=== PATIENT | male | born 1990 | race Caucasian/White ===

== ENCOUNTER 2017-11-12 12:37 | Emergency (ER) | payer OTHER ==
[~2017-11-12] VITALS: Ht 190.5 cm; Wt 87.5 kg
[2017-11-12] MEDS ORDERED: Norco 5mg/325mg tab ORAL ONE (13:00)
--- NOTE | 2017-11-12 14:10 | Diagnostic Imaging Report ---
Indication: Pain Technique: Multiplanar grayscale and color Doppler imaging of the testicles Comparison: None Findings: The right testicle measures 4.1 x 2.7 x 3.2 cm. Echogenicity is homogeneous. No focal mass lesion is appreciated. Vascular flow to the right testicle is documented. There is a trace right hydrocele. Right epididymis is unremarkable in appearance. No hyperemia is noted upon interrogation with color Doppler. Multiple subcentimeter well-circumscribed anechoic structures are noted in the epididymis compatible with epididymal cysts. No definite varicocele noted in the right. The left testicle measures 4.2 x 2.3 x 2.5 cm. It is homogeneous in echogenicity. No focal mass lesion is appreciated. A moderate-sized hydrocele is noted on the left. Vascular flow to the left testicle is documented. Small epididymal cysts are also noted in the left epididymis, which is otherwise unremarkable in appearance. No hyperemia is noted upon interrogation with color Doppler. There is dilatation of venous structures in the pampiniform plexus with Valsalva on the left greater than 3 mm compatible with a varicocele. IMPRESSION: No evidence to suggest testicular torsion at this time. Trace right hydrocele. Mild to moderate left hydrocele. Left-sided varicocele.
[2017-11-12] MEDS ORDERED: ACETAMINOPHEN-1 EAC1 ORAL (14:25)
[2017-11-12 15:05] VITALS: BP 127/79
--- NOTE | 2017-11-13 14:02 | Emergency Room Report ---
History of Present Illness General Chief Complaint: Pain Source: Patient Present Illness HPI 27-year-old male presents to ED for evaluation. Patient presents with left testicular pain which started around 11 AM today. Sudden onset. Pain is throbbing, 8/10, nonradiating. patient feels nauseous. Patient documents history of varicocele but states this feels different. Denies dysuria or hematuria. Denies discharge. Denies trauma. No other aggravating relieving factors. Denies any other associated symptoms Allergies: Coded Allergies: No Known Allergies (Unverified , 11/12/17) Patient History Past Medical History: none Past Surgical History: none Pertinent Family History: none Social History: Denies: smoking, alcohol use, drug use Immunizations: UTD Reviewed Nursing Documentation: PMH: Agreed, PSxH: Agreed Nursing Documentation-PMH Past Medical History: No Stated History Review of Systems All Other Systems: negative except mentioned in HPI Physical Exam Vital Signs Date Time Temp Pulse Resp B/P (MAP) Pulse Ox O2 Delivery O2 Flow Rate FiO2 11/12/17 12:40 97.9 62 18 134/88 100 Room Air Sp02 EP Interpretation: reviewed, normal General Appearance: no apparent distress, alert, GCS 15, non-toxic Head: normocephalic Eyes: bilateral eye normal inspection, bilateral eye PERRL ENT: normal ENT inspection Neck: normal inspection Respiratory: normal inspection Cardiovascular #1: normal inspection Gastrointestinal: normal inspection Rectal: deferred Genitourinary: no CVA tenderness, other - L testicular pain Musculoskeletal: normal inspection Neurologic: alert, oriented x3, responsive, motor strength/tone normal, sensory intact, speech normal Psychiatric: judgement/insight normal, memory normal, mood/affect normal, no suicidal/homicidal ideation Skin: normal inspection Lymphatic: normal inspection Medical Decision Making Diagnostic Impression: Primary Impression: Varicocele ER Course 27-year-old male presents to ED complaining of scrotal pain Differential-torsion, hydrocele, varicocele patient placed on stretcher. After initial history and physical I ordered pain meds, Zofran, scrotal ultrasound Ultrasound shows no evidence of torsion, good Doppler flow to both testicles. There is evidence of hydrocele and varicocele Discussed findings with patient. On reassessment pain is improved. Patient can be safely discharged home I will provide referral to urology Diagnosis-varicocele Stable and discharged to home prescription for Tylenol #3. Followup with PMD/ urology. Return to ED if symptoms recur or worsen CT/MRI/US Diagnostic Results CT/MRI/US Diagnostic Results : Imaging Test Ordered: Scrotal US Impression no signs of testicular torsion. varicocele, hydrocele noted Last Vital Signs Date Time Temp Pulse Resp B/P (MAP) Pulse Ox O2 Delivery O2 Flow Rate FiO2 11/12/17 15:05 97.9 71 16 127/79 97 Room Air Status: improved Disposition: HOME, SELF-CARE Condition: Stable Scripts Acetaminophen With Codeine (T#3) (TYLENOL #3 TAB*) Y Tab 1 TAB ORAL Q8H Y for For Pain, #20 TAB Prov: NIKHIL FLEMING M.D. 11/12/17 Referrals: Eliel Lee M.D. [facility],REFERRING (PCP) Patient Instructions: Varicocele NIKHIL FLEMING M.D. Nov 13, 2017 14:02
== END 2017-11-12 15:07 | disposition home or self-care (01) ==
LOC: EMR 13:15
DX: I86.1 Scrotal varices (principal); N43.3 Hydrocele, unspecified
CPT/HCPCS: 76870; 99283